=== PATIENT | male | born 1980 | race Caucasian/White ===

== ENCOUNTER 2017-10-08 19:57 | Emergency (ER) | payer BC, OTHER ==
[~2017-10-08] VITALS: Ht 190.5 cm; Wt 87.2 kg
[2017-10-08 20:13] VITALS: Ht 190.5 cm; Wt 87.2 kg
[2017-10-08] MEDS ORDERED: ACETAMINOPHEN 500 MG TAB PO STA (21:30)
--- NOTE | 2017-10-08 21:31 | EMERGENCY ROOM VISIT NOTE ---
History Report prepared by Juan Francisco: Niurka Novoa Under the Supervision of: Leonel RiceO. First contact with patient: 21:17 Chief Complaint: FLU LIKE SX Stated Complaint: FLU SYMTOMS History of Present Illness The patient is a 37 year old male who presents to the Emergency Room with complaints of constant flu-like symptoms beginning last night. The patient notes chills, fever, decreased appetite, and body aches. The patient has a fever of 102 this afternoon. He states he took 800 mg of ibuprofen this afternoon which helped his appetite. He denies drinking much fluids today. The patient denies any recent travel He states he was around a friend who was sick and tested positive for influenza. Pt denies headache, rashes, sores, runny nose , change in vision, cough, sorethroat, chest pain, shortness of breath, nausea, vomiting, diarrhea, pain with urination, and melena. The patient denies getting a flu shot this year. Source of History: patient Onset: last night Quality: other (flu-like symptoms) Timing: constant Associated Symptoms: + fevers, + chills, No sorethroat, No cough, No chest pain, No SOB, No nausea, No vomiting, No diarrhea, No urinary symptoms Review of Systems See HPI for pertinent positives & negatives. A total of 10 systems reviewed and were otherwise negative. Past Medical & Surgical Medical Problems: (1) No Known Active Medical Problems Family History Patient reports no known family medical history. Social History Smoking Status: Current Every Day Smoker Alcohol Use: occasionally Marital Status: Occupation Status: employed Current/Historical Medications No Active Prescriptions or Reported Meds Allergies Coded Allergies: BEE STING (Verified Allergy, Unknown, UNKNOWN, 10/08/17) Uncoded Allergies: NKDA (Allergy, Unknown, 08/30/03) Physical Exam Vital Signs Date Time Temp Pulse Resp B/P (MAP) Pulse Ox O2 Delivery O2 Flow Rate FiO2 10/08/17 23:16 37.1 77 16 117/70 98 10/08/17 23:15 37.1 10/08/17 20:13 36.8 77 16 95/61 98 Room Air Physical Exam GENERAL: alert, well appearing, well nourished, no distress, non-toxic EYE EXAM: normal conjunctiva, PERRL and EOM's grossly intact OROPHARYNX: no exudate, no erythema, lips, buccal mucosa, and tongue normal and mucous membranes are moist NECK: supple, no nuchal rigidity, no adenopathy, non-tender LUNGS: Clear to auscultation. Normal chest wall mechanics HEART: no murmurs, S1 normal and S2 normal ABDOMEN: abdomen soft, non-tender, normo-active bowel sounds, no masses, no rebound or guarding. BACK: Back is symmetrical on inspection and there is no deformity, no midline tenderness, no CVA tenderness. SKIN: no rashes and no bruising UPPER EXTREMITIES: upper extremities are grossly normal. LOWER EXTREMITIES: No pitting edema. NEURO EXAM: Normal sensorium, cranial nerves II-XII grossly intact, normal speech, no gross weakness of arms, no gross weakness of legs. Medical Decision & Procedures Laboratory Results Test 10/08/17 21:57 Influenza Type A Antigen Neg for Influ A (NEG) Influenza Type B Antigen Neg for Influ B (NEG) Laboratory results per my review. Medications Administered Medications (Trade) Dose Ordered Sig/Gail Route Start Time Stop Time Status Last Admin Dose Admin Acetaminophen (Tylenol Tab) 1,000 mg NOW STAT PO 10/08/17 21:30 10/08/17 21:31 DC 10/08/17 21:54 1,000 MG ED Course 2122: The patient was evaluated in room C5. A complete history and physical exam was performed. Repeat bedside blood pressure is 111/61. 2129: Ordered Tylenol Tab 1000 mg PO. 9: I updated the patient on his test results. 2304: Upon reevaluation, the patient is feeling better. I discussed the findings and the treatment plan with the patient. He verbalizes agreement and understanding. The patient was discharged home. Medical Decision Differential diagnosis: Etiologies such as viral syndrome, otitis, pharyngitis, pneumonia, influenza, meningitis, urinary tract infection, sepsis, bacteremia, as well as others were entertained. Patient young, otherwise healthy, not immunocompromised, presenting with concern for possible flu exposure for Tamiflu. Patient had not tried any over- the-counter medications at home to help with symptoms. Patient improved here, updated on the results. Patient with no other focal symptoms to suggest additional pathology or complication such as pneumonia, strep pharyngitis, otitis media, deep space infection. Presentation and exam not consistent with meningitis/encephalitis, did not feel patient warranted lumbar puncture. Doubt bacteremia/sepsis. No other focal GI or complaints. Discussed hydration, use of Tylenol and ibuprofen, diet, symptoms watch and return for, they verbalized understanding were agreeable with plan. Medication Reconcilliation Current Medication List: was personally reviewed by me Blood Pressure Screening Patient's blood pressure: Normal blood pressure Impression Primary Impression: Influenza-like symptoms Scribe Attestation The scribe's documentation has been prepared under my direction and personally reviewed by me in its entirety. I confirm that the note above accurately reflects all work, treatment, procedures, and medical decision making performed by me. Departure Information Dispostion Home / Self-Care Prescriptions No Active Prescriptions or Reported Meds Referrals John Lowery D.O. (PCP) Forms HOME CARE DOCUMENTATION FORM, IMPORTANT VISIT INFORMATION Patient Instructions My [facility] Additional Instructions Please drink plenty of water, you may eat as tolerated. Please use Tylenol and ibuprofen as needed for fevers and pains. If you have any worsening symptoms including increasing cough or trouble breathing, dizziness, vomiting, diarrhea, chest pain, rash or sores, headaches, or other new concerns, please return the emergency room.
[2017-10-08 22:37] LABS: INFLUENZA B ANTIGEN Neg for Influ B (NEG)
[2017-10-08 23:16] VITALS: BP 117/70; PULSE 77; TEMP 37.1; O2SAT 98
== END 2017-10-08 23:17 | disposition home or self-care (01) ==
LOC: C.EDB 19:58 → C.EDC 23:17
DX: R50.9 Fever, unspecified (principal); M79.1 Myalgia; R63.0 Anorexia; F17.200 Nicotine dependence, unspecified, uncomplicated

== ENCOUNTER 2018-01-31 18:54 | Emergency (ER) | payer OTHER ==
[~2018-01-31] VITALS: Ht 193 cm; Wt 92.0 kg
[2018-01-31 18:55] VITALS: Ht 193 cm; Wt 92.0 kg
--- NOTE | 2018-01-31 19:43 | DIAGNOSTIC IMAGING REPORT ---
RIGHT FOREARM 2 VIEWS CLINICAL HISTORY: Right arm pain and swelling. FINDINGS: AP and lateral views of the right forearm are obtained. No prior studies are available for comparison at the time of dictation. The skeletal structures are well mineralized. No fracture is seen. The wrist and elbow joints are grossly maintained. Soft tissue edema is seen along the ulnar aspect of the forearm. IMPRESSION: Soft tissue swelling with no radiographic evidence of right forearm fracture. Electronically signed by: Lucho Fatima M.D. 01/31/2018 7:42 PM Dictated Date/Time: 01/31/2018 7:40 PM
[2018-01-31 20:26] VITALS: BP 131/80; PULSE 72; O2SAT 100
--- NOTE | 2018-01-31 21:49 | EMERGENCY ROOM VISIT NOTE ---
ED Visit Note First contact with patient: 19:02 Chief Complaint: Right wrist and swelling. History of Present Illness: Mr. Kwong is a 37-year-old white male who ambulates into the ED complaining of mild pain and swelling over the right forearm approximately 3-4 cm above the wrist. Patient reports a few days ago he was lifting up bricks to lie a patio as well as picking up tree material. He reports over the last couple of days he has noted some swelling approximately 3-4 cm above his wrist over the posterior lateral area of the radius. Currently he describes his associated discomfort as an achy sensation. He rates his discomfort 3/10. Pain is nonradiating. His pain slightly worsens with palpation and ulnar deviation. He has not identified any alleviating factors related to the pain. He has not taken any medications for pain prior to arrival at the hospital. Associated with his pain when he feels the area and moves his waist primarily in ulnar deviation he hears a mild creaking sensation. He denies shoulder pain, elbow pain, wrist pain, hand pain, arm/hand weakness/ numbness/tingling. Additionally he denies any previous significant injuries or surgeries to the arm. Review of Systems: As noted above in history of present illness. Past Medical History: Patient denies. Current Medications: Patient denies. Allergies to Medications: Patient denies. Social History: Patient is currently employed; he feels safe in his home environment; he admits to tobacco and alcohol use. Physical Examination: Vital Signs: Date Time Temp Pulse Resp B/P (MAP) Pulse Ox O2 Delivery O2 Flow Rate FiO2 01/31/18 20:26 72 18 131/80 100 Room Air 01/31/18 18:55 36.7 68 20 134/84 100 Room Air GENERAL: 37-year-old male in mild distress due to pain, nontoxic-appearing, afebrile and hemodynamically stable. NEUROLOGICAL: Awake, alert and oriented to person, place and time. Answering questions appropriately and following commands. SKIN: Warm, dry and pink. No soft tissue eruptions or trauma noted. RIGHT UPPER EXTREMITY: No gross bony deformity. No tenderness in the elbow, wrist, hand or fingers. There is mild swelling without erythema approximately 3 -4 cm just superior to the wrist over the radius. This area is mildly tender to palpation. I do not appreciate any bony deformity or crepitus. Patient does have full range of motion in flexion and extension of the elbow, pronation and supination of forearm, flexion, extension and radial and ulnar deviation of the wrist in flexion and extension of all fingers. Throughout the hand the skin was warm and pink and capillary refill was brisk. He was able to distinguish light sensations to all dermatomes. ED Course: Patient is assessed as noted above. Patient's medication list was reviewed. Patient was offered pain medication and refused but was given ice for pain and comfort. Right Forearm X-Rays: Were read by myself and the radiologist showing no acute fractures or dislocations. No foreign bodies. Mild soft tissue swelling of the forearm. Patient was placed in a wrist lacer splint. Patient was educated about today's findings and instructed on his treatment plan ; he verbalized understanding and agreement with this plan. Disposition: Patient discharged home in stable condition; prior to departure he was reassessed and subjectively reported he was feeling better and rated his discomfort 2/10. Plan: Comfort measures were discussed with the patient including rest, ice, splint use and alternating ibuprofen and acetaminophen for pain. Patient was encouraged to follow-up with cash control specialist if no better in 7 days. Patient was encouraged return the ED for worsening/uncontrolled pain, worsening swelling, arm/hand weakness/numbness/tingling or any new/concerning symptoms.
== END 2018-01-31 20:28 | disposition home or self-care (01) ==
LOC: C.EDB 18:55 → C.EDD 20:28
DX: M79.631 Pain in right forearm (principal); X58.XXXA Exposure to other specified factors, initial encounter; Y93.89 Activity, other specified; Y99.8 Other external cause status; Z72.0 Tobacco use